=== PATIENT | male | born 2000 | race Caucasian/White ===

== ENCOUNTER 2018-07-15 12:36 | Emergency (ER) | payer OTHER ==
[2018-07-15 12:57] VITALS: BP 111/55
--- NOTE | 2018-07-15 14:09 | Emergency Department Report ---
ED Lower Extremity HPI - General Chief Complaint: Medical Clearance Stated Complaint: SWOLLEN (R) KNEE Time Seen by Provider: 07/15/18 13:49 Source: patient Mode of arrival: Ambulatory Limitations: No Limitations - History of Present Illness Initial Comments: 18-year-old male presents with pain and swelling to right knee 2 weeks. States has been very active over the last 2 weeks, helping build a 10, helping his mother move, helping friends move, etc. Patient has been doing lots of bending of the knee, standing, walking. Patient states has been icing his knee and keep it elevated. Reports pain is decreased in the morning, but as he begins moving around and walking throughout the day, pain and swelling worsen. Patient denies fall or injury. MD Complaint: other (right knee pain) -: week(s) (2) Severity: mild Improves With: cold therapy, rest Worsens With: weight bearing, movement Associated Symptoms: swelling, ambulatory. denies: numbness, tingling Treatments Prior to Arrival: cold therapy - Related Data Previous Rx's Medication Instructions Recorded Last Taken Type Naproxen [Naprosyn] 500 mg PO BID #20 tablet 07/15/18 Unknown Rx predniSONE [Prednisone] 50 mg PO DAILY #5 tablet 07/15/18 Unknown Rx Allergies Allergy/AdvReac Type Severity Reaction Status Date / Time No Known Allergies Allergy Unverified 07/15/18 12:57 ED Review of Systems ROS: Stated complaint: SWOLLEN (R) KNEE Other details as noted in HPI Comment: All other systems reviewed and negative Constitutional: denies: chills, fever Musculoskeletal: joint swelling, arthralgia ED Past Medical Hx - Past Medical History Previous Medical History?: No - Surgical History Past Surgical History?: No - Social History Smoking Status: Never Smoker Substance Use Type: None - Medications Home Medications: Home Medications Medication Instructions Recorded Confirmed Last Taken Type Naproxen [Naprosyn] 500 mg PO BID #20 tablet 07/15/18 Unknown Rx predniSONE [Prednisone] 50 mg PO DAILY #5 tablet 07/15/18 Unknown Rx ED Physical Exam - General Limitations: No Limitations General appearance: alert, in no apparent distress - Head Head exam: Present: atraumatic, normocephalic - Eye Eye exam: Present: normal appearance - ENT ENT exam: Present: mucous membranes moist - Neck Neck exam: Present: normal inspection - Respiratory Respiratory exam: Present: normal lung sounds bilaterally. Absent: respiratory distress - Cardiovascular Cardiovascular Exam: Present: regular rate, normal rhythm - Extremities Exam Extremities exam: Present: full ROM, tenderness (mild pain with range of motion of the joint), joint swelling (mild right knee swelling) - Neurological Exam Neurological exam: Present: alert, oriented X3. Absent: motor sensory deficit - Psychiatric Psychiatric exam: Present: normal affect, normal mood - Skin Skin exam: Present: warm, dry, intact, normal color. Absent: rash ED Course Vital Signs 07/15/18 12:53 Temperature 98.5 F Pulse Rate 58 L Respiratory 16 Rate Blood Pressure 111/55 O2 Sat by Pulse 100 Oximetry ED Lower Extremity MDM - Differential Diagnosis arthritis, sprain Critical care attestation.: If time is entered above; I have spent that time in minutes in the direct care of this critically ill patient, excluding procedure time. ED Disposition Clinical Impression: Internal derangement of knee, acute Disposition: DC-01 TO HOME OR SELFCARE Is pt being admited?: No Condition: Stable Instructions: Knee Pain (ED) Prescriptions: Naproxen [Naprosyn] 500 mg PO BID #20 tablet predniSONE [Prednisone] 50 mg PO DAILY #5 tablet Referrals: FRANCISCO GONSALEZ MD [Staff Physician] - as needed [facility] [Provider Group] - as needed [facility] [Outside] - as needed Forms: Work/School Release Form(ED) Time of Disposition: 14:11
[2018-07-15] MEDS ORDERED: MOTRIN ONE (14:10)
[2018-07-15] MEDS ORDERED: ZOFRAN ODT ONE (14:10)
== END 2018-07-15 14:20 | disposition home or self-care (01) ==
LOC: ED 12:36
DX: M23.91 Unspecified internal derangement of right knee (principal)
CPT/HCPCS: 99282; Q0162

== ENCOUNTER 2021-04-09 19:24 | Emergency (ER) | payer SELFPAY ==
--- NOTE | 2021-04-09 22:25 | Emergency Department Report ---
ED General Adult HPI - General Chief complaint: Earache Stated complaint: RT EAR PAIN Source: patient Mode of arrival: Ambulatory Limitations: No Limitations - History of Present Illness Initial comments: Patient is a 20-year-old -[place] male with no past medical history presents to the ED with complaint of acute onset persistent ringing on the right ear with pressure, cerumen impaction after swimming in water pool for 2 days. Patient states that the symptoms have been persistent especially the ringing and the pressure in the right ear causing a little discomfort. Patient denies hearing loss, dizziness, syncope, chest pain, shortness of breath, abdominal pain, traumatic injury, sore throat, nasal and sinus congestion, cough, fever and chills or headache. MD Complaint: Ringing in right ear; discomfort in right ear, s/p swimming pool of water -: Sudden, days(s) (2) Location: face (right ear) Radiation: non-radiation Severity scale (0 -10): 1 Quality: aching, dull Consistency: constant Improves with: none Worsens with: none Associated Symptoms: denies other symptoms, other (right ear). denies: confusion, chest pain, cough, diaphoresis, fever/chills, headaches, loss of appetite, malaise, nausea/vomiting, rash, seizure, shortness of breath, syncope, weakness Treatments Prior to Arrival: none - Related Data Previous Rx's Medication Instructions Recorded Last Taken Type Naproxen [Naprosyn] 500 mg PO BID #20 tablet 07/15/18 Unknown Rx predniSONE [Prednisone] 50 mg PO DAILY #5 tablet 07/15/18 Unknown Rx Carbamide Peroxide 6.5% [Ear Wax 3 drops OT BID #15 ml 04/09/21 Unknown Rx Drops] Ibuprofen [Motrin] 400 mg PO Q8H PRN #20 tablet 04/09/21 Unknown Rx Neomy/Polymyx B/Hc (Otic) Soln 4 drops OT TID #10 ml 04/09/21 Unknown Rx [Cortisporin (Otic) Soln] Allergies Allergy/AdvReac Type Severity Reaction Status Date / Time No Known Allergies Allergy Unverified 07/15/18 12:57 ED Review of Systems ROS: Stated complaint: RT EAR PAIN Other details as noted in HPI Constitutional: denies: chills, fever Eyes: denies: eye pain, eye discharge, vision change ENT: ear pain (right ear pressure; ringing in right ear). denies: throat pain Respiratory: denies: cough, shortness of breath, wheezing Cardiovascular: denies: chest pain, palpitations Endocrine: no symptoms reported Gastrointestinal: denies: abdominal pain, nausea, diarrhea Genitourinary: denies: urgency, dysuria Musculoskeletal: denies: back pain, joint swelling, arthralgia Skin: denies: rash, lesions Neurological: denies: headache, weakness, paresthesias Psychiatric: denies: anxiety, depression Hematological/Lymphatic: denies: easy bleeding, easy bruising ED Past Medical Hx - Past Medical History Previous Medical History?: No - Surgical History Past Surgical History?: No - Social History Smoking Status: Never Smoker Substance Use Type: Marijuana - Medications Home Medications: Home Medications Medication Instructions Recorded Confirmed Last Taken Type Naproxen [Naprosyn] 500 mg PO BID #20 tablet 07/15/18 Unknown Rx predniSONE [Prednisone] 50 mg PO DAILY #5 tablet 07/15/18 Unknown Rx Carbamide Peroxide 6.5% [Ear Wax 3 drops OT BID #15 ml 04/09/21 Unknown Rx Drops] Ibuprofen [Motrin] 400 mg PO Q8H PRN #20 tablet 04/09/21 Unknown Rx Neomy/Polymyx B/Hc (Otic) Soln 4 drops OT TID #10 ml 04/09/21 Unknown Rx [Cortisporin (Otic) Soln] ED Physical Exam - General Limitations: No Limitations General appearance: alert, in no apparent distress - Head Head exam: Present: atraumatic, normocephalic, normal inspection - Eye Eye exam: Present: normal appearance, PERRL, EOMI Pupils: Present: normal accommodation - ENT ENT exam: Present: normal orophraynx, mucous membranes moist, other (cerumen impaction of right ear canal; buldging right TM with effusion) - Neck Neck exam: Present: normal inspection, full ROM - Respiratory Respiratory exam: Present: normal lung sounds bilaterally. Absent: respiratory distress, wheezes, rales, rhonchi, chest wall tenderness, accessory muscle use, decreased breath sounds, prolonged expiratory - Cardiovascular Cardiovascular Exam: Present: regular rate, normal rhythm, normal heart sounds. Absent: systolic murmur, diastolic murmur, rubs, gallop - GI/Abdominal GI/Abdominal exam: Present: soft, normal bowel sounds. Absent: tenderness, guarding, rebound, hyperactive bowel sounds, hypoactive bowel sounds, organomegaly - Extremities Exam Extremities exam: Present: normal inspection, full ROM, normal capillary refill - Back Exam Back exam: Present: normal inspection, full ROM. Absent: tenderness, CVA tenderness (R), CVA tenderness (L), muscle spasm, paraspinal tenderness, vertebral tenderness - Neurological Exam Neurological exam: Present: alert, oriented X3, CN II-XII intact, normal gait, reflexes normal - Psychiatric Psychiatric exam: Present: normal affect, normal mood - Skin Skin exam: Present: warm, dry, intact, normal color. Absent: rash ED Course Vital Signs 04/09/21 21:03 Temperature 98.2 F Pulse Rate 65 Respiratory 18 Rate Blood Pressure 92/38 O2 Sat by Pulse 97 Oximetry ED Medical Decision Making - Medical Decision Making This is a 20-year-old -[place] male with no past medical history presents to the ED with complaint of acute onset persistent ringing on the right ear with pressure, cerumen impaction after swimming in water pool for 2 days. Patient states that the symptoms have been persistent especially the ringing and the pressure in the right ear causing a little discomfort. In the ED, patient is alert and oriented x3 and is not in any distress and is hemodynamically stable. Physical exam is unremarkable except for mild cerumen impaction and bulging right tympanic membrane with no erythema or bleeding. Patient was therefore discharged home on medications and advised to follow-up with his primary care physician in 5 to 7 days for reevaluation or return to the ED immediately if symptoms get worse. - Differential Diagnosis Cerumen impaction; otitis externa; otitis media; eardrum rupture Critical care attestation.: If time is entered above; I have spent that time in minutes in the direct care of this critically ill patient, excluding procedure time. ED Disposition Clinical Impression: Impacted cerumen of right ear Acute otitis externa of right ear Qualifiers: Otitis externa type: noninfectious Noninfectious otitis externa type: reactive Qualified Code(s): H60.551 - Acute reactive otitis externa, right ear Disposition: - TO HOME OR SELFCARE Is pt being admited?: No Does the pt Need Aspirin: No Condition: Stable Instructions: Ear Drops, Adult, [id number], Otitis Externa, [id number] Additional Instructions: Apply the medication to the affected area as advised, drink plenty of fluids and follow-up with your primary care physician in 5 to 7 days for reevaluation. Return to the ED immediately if symptoms get worse. Prescriptions: Neomy/Polymyx B/Hc (Otic) Soln [Cortisporin (Otic) Soln] 4 drops OT TID #10 ml Carbamide Peroxide 6.5% [Ear Wax Drops] 3 drops OT BID #15 ml Ibuprofen [Motrin] 400 mg PO Q8H PRN #20 tablet PRN Reason: Pain , Severe (7-10) Referrals: [facility] [Provider Group] - 3-5 Days Time of Disposition: 22:26 Print Language: PAKISTANI
[2021-04-09 23:46] VITALS: BP 98/60
== END 2021-04-09 22:35 | disposition home or self-care (01) ==
LOC: ED 19:24
DX: H60.91 Unspecified otitis externa, right ear (principal); H61.21 Impacted cerumen, right ear; F12.90 Cannabis use, unspecified, uncomplicated; Z79.899 Other long term (current) drug therapy
CPT/HCPCS: 99282